=== PATIENT | female | born 1995 | race Caucasian/White ===

== ENCOUNTER 2016-11-10 06:34 | Inpatient (IN) | payer OTHER ==
[~2016-11-10] VITALS: Ht 157.5 cm; Wt 75.2 kg
[2016-11-10] VITALS (27 sets, daily range): BP systolic 109–149; BP diastolic 54–95
[~2016-11-10 06:34] MED LIST: CIPRO500 MG PO; ENDOCET 5-3251 EACH PO; IBUPROFEN800 MG PO; KEFLEX500 MG PO; MELADOX3 MG PO; NIZORAL 2% CREA15 GM TP; PROMETHAZINE HC25 M1 PO; VYVANSE70 MG PO; WELLBUTRIN SR150 MG PO; ZANTAC150 MG PO; ZITHROMAX Z-PA250 MG PO
[2016-11-10 09:13] LABS: EOSINOPHIL (%) 1.4 % (0-5); EOSINOPHIL COUNT 0.2 K/uL (0-0.3); HEMATOCRIT 36.6 % (36.0-46.0); IMMATURE GRANULOCYTE (%) 1.4 % (0.0-0.7); IMMATURE GRANULOCYTE COUNT 0.2 K/uL; INSTRUMENT ABS NEUTROPHIL CT 8.2 K/uL; LYMPHOCYTE COUNT 2.5 K/uL (1.0-2.8); MCH 28.4 PG (29.0-34.0); MCHC 33.9 G/DL (30.0-36.0); MCV 83.9 FL (83-99); MEAN PLAT.VOLUME 10.2 uM^3 (9.5-12.4); MONOCYTE (%) 8.1 % (3-12); NEUTROPHIL (%) 68.5 % (45-76); NEUTROPHIL COUNT 8.2 K/uL (1.8-6.4); PLATELET COUNT 194 K/uL (156-360); RBC DIS.WIDTH-CV 13.6 % (11.8-14.6); RBC DIS.WIDTH-SD 41.6 % (39-53); RED BLOOD COUNT 4.36 M/uL (3.80-5.20)
[2016-11-10 10:12] LABS: AMPHETAMINE NEGATIVE (500 ng/mL); BARBITURATES NEGATIVE (200 ng/mL); BENZODIAZEPINES NEGATIVE (150 ng/mL); COCAINE NEGATIVE (150 ng/mL); INTERNAL CONTROLS VALID? YES; METHADONE NEGATIVE (200 ng/mL); METHAMPHETAMINE NEGATIVE (500 ng/mL); OPIATES (MORPHINE) NEGATIVE (100 ng/mL); OXYCODONE NEGATIVE (100 ng/mL); PHENCYCLIDINE NEGATIVE (25 ng/mL); PROPOXYPHENE NEGATIVE (300 ng/mL); THC CANNABINOIDS PRESUMPTIVE POSITIVE (50 ng/mL); TRICYCLIC ANTIDEPRESSANTS NEGATIVE (300 ng/mL)
[2016-11-10 10:13] LABS: ADD MEDTOX COMMENT Y
[2016-11-10] MEDS ORDERED: MOTRIN800 MG PO (22:32)
[2016-11-11 00:32] VITALS: BP 108/59
[2016-11-11 01:32] VITALS: BP 138/70
[2016-11-11 05:30] VITALS: BP 106/56
[2016-11-11 08:13] VITALS: BP 128/59
[2016-11-11 15:11] VITALS: BP 123/67
[2016-11-11 23:00] VITALS: BP 127/60
[2016-11-12 07:20] VITALS: BP 122/74
== END 2016-11-12 13:10 | disposition home or self-care (01) | DRG 775 ==
LOC: LDRP-OP 06:34 → 2WEST 06:35 → LDRP-OP 19:09 → 2WEST 22:14 → LDRP-OP 01-01 13:46
PROVIDERS: Nurse Practitioner
DX: O36.5930 Maternal care for other known or suspected poor fetal growth, third trimester, not applicable or unspecified (principal); Z3A.37 37 weeks gestation of pregnancy; Z37.0 Single live birth; F17.200 Nicotine dependence, unspecified, uncomplicated; O99.334 Smoking (tobacco) complicating childbirth; O99.320 Drug use complicating pregnancy, unspecified trimester; F12.90 Cannabis use, unspecified, uncomplicated
CPT/HCPCS: 84999; 85025; C1755; J2405; J3010; J7120

== ENCOUNTER 2016-11-16 09:03 | Emergency (ER) | payer OTHER ==
[~2016-11-16] VITALS: Ht 157.5 cm; Wt 70.9 kg
[~2016-11-16 09:03] MED LIST changes: +MOTRIN800 MG PO
[2016-11-16 09:29] VITALS: BP 121/78
[2016-11-16 09:59] VITALS: BP 117/90
[2016-11-16 10:26] LABS: HEMATOCRIT 36.6 % (36.0-46.0); MCH 27.8 PG (29.0-34.0); MCHC 32.5 G/DL (30.0-36.0); MCV 85.5 FL (83-99); MEAN PLAT.VOLUME 9.8 uM^3 (9.5-12.4); RBC DIS.WIDTH-CV 14.2 % (11.8-14.6); RED BLOOD COUNT 4.28 M/uL (3.80-5.20); WHITE BLOOD COUNT 12.2 K/uL (4.1-10.2)
[2016-11-16 10:30] LABS: PLATELET COUNT 255 K/uL (156-360)
[2016-11-16 10:33] LABS: CHLORIDE 111 mEq/L (99-109); POTASSIUM 3.7 mEq/L (3.7-5.4); SODIUM 142 mEq/L (136-147)
[2016-11-16 10:35] LABS: GLUCOSE 87 mg/dL (70-99)
[2016-11-16 10:36] LABS: ANION GAP 8 MEQ/L (2-14)
[2016-11-16 10:37] LABS: TOTAL BILIRUBIN 0.2 mg/dL (0.0-1.0)
[2016-11-16 10:39] LABS: ALKALINE PHOSPHATASE 108 IU/L (3-129); GFR ESTIMATE (CALCULATED) > 59 mL/min/
[2016-11-16 10:40] LABS: UREA NITROGEN (BUN) 9 mg/dL (9-23)
[2016-11-16 10:43] VITALS: BP 117/90
[2016-11-16 12:09] LABS: ADD MIUA? YES; BILIRUBIN NEGATIVE; BLOOD LARGE; COLOR RED ((YELLOW)); GLUCOSE (STRIP) NEGATIVE; KETONES NEGATIVE; LEUKOCYTES LARGE; NITRITE NEGATIVE; PROTEIN (STRIP) 100; SPECIFIC GRAVITY 1.011 (1.000-1.030); UROBILINOGEN 0.2 MG/DL (0.2-1.0)
[2016-11-16 12:14] LABS: BACTERIA RARE /HPF; BUDDING YEAST 2+; CALCIUM OXALATE CRYSTALS 4+ /HPF; EPITHELIAL CELLS 2+ /HPF; MUCUS NONE SEEN /LPF; RED BLOOD CELLS TNTC /HPF (0-5); UCUL ADDED? YES; WHITE BLOOD CELLS TNTC /HPF (0-5)
== END 2016-11-16 13:21 | disposition left against medical advice (07) ==
LOC: EME 09:03
PROVIDERS: Emergency Medicine
DX: O90.89 Other complications of the puerperium, not elsewhere classified (principal); R10.30 Lower abdominal pain, unspecified; F17.200 Nicotine dependence, unspecified, uncomplicated
CPT/HCPCS: 76856; 80053; 81003; 85027; 87086; 99281; 99285; J1885; J7030

== ENCOUNTER 2018-01-07 04:12 | Emergency (ER) | payer OTHER ==
[~2018-01-07] VITALS: Ht 157.5 cm; Wt 58.9 kg
[2018-01-07 05:09] LABS: HEMATOCRIT 31.5 % (36.0-46.0); HEMOGLOBIN 10.6 G/DL (11.9-15.5); MCH 29.5 PG (29.0-34.0); MCHC 33.7 G/DL (30.0-36.0); MCV 87.7 FL (83-99); PLATELET COUNT 220 K/uL (156-360); RBC DIS.WIDTH-CV 14.8 % (11.8-14.6); RBC DIS.WIDTH-SD 48.2 % (39-53); RED BLOOD COUNT 3.59 M/uL (3.80-5.20); WHITE BLOOD COUNT 9.2 K/uL (4.1-10.2)
[2018-01-07 05:21] LABS: CHLORIDE 107 mEq/L (99-109); POTASSIUM 3.6 mEq/L (3.7-5.4); SODIUM 141 mEq/L (136-147)
[2018-01-07 05:22] LABS: GLUCOSE 100 mg/dL (70-99)
[2018-01-07 05:26] LABS: CREATININE 0.7 mg/dL (0.6-1.3); GFR ESTIMATE (CALCULATED) > 59 mL/min/
[2018-01-07 05:27] LABS: UREA NITROGEN (BUN) 7 mg/dL (9-23)
[2018-01-07] MEDS ORDERED: MOTRIN600 MG PO (06:11)
[2018-01-07 06:49] VITALS: BP 120/82
== END 2018-01-07 06:51 | disposition home or self-care (01) ==
LOC: EME 04:12
PROVIDERS: Emergency Medicine
DX: N93.9 Abnormal uterine and vaginal bleeding, unspecified (principal); Z98.890 Other specified postprocedural states; F17.200 Nicotine dependence, unspecified, uncomplicated; Z88.8 Allergy status to other drugs, medicaments and biological substances
CPT/HCPCS: 76856; 80048; 81003; 85027; 86900; 86901; 99281; 99284